=== PATIENT | female | born 1990 | race Caucasian/White ===

== ENCOUNTER 2018-10-12 21:25 | Emergency (ER) | payer BC ==
[~2018-10-12] VITALS: Ht 167.6 cm; Wt 80.8 kg
[~2018-10-12 21:25] MED LIST: PRENAT PO
[2018-10-12 21:35] VITALS: Ht 167.6 cm; Wt 80.8 kg
--- NOTE | 2018-10-12 22:06 | ERD ---
ER Documentation Chief Complaint Chief Complaint exposed to bleach in R eye x30 minutes, can't see out of eye HPI This is a 28-year-old female who presents here in the emergency department with complaints of right eye pain. Stated that his right right eye was exposed to bleach around 1 to 2 hours prior to arrival here in emergency department. LMP: Stated it was 4 days ago. A0. Denies headache, head injury, loss of consciousness, dizziness, neck pain, neck stiffness, throat pain, difficulty swallowing, difficulty breathing lying flat, shoulder pain, chest pain, back pain, abdominal pain, nausea, vomiting, constipation, diarrhea, urinary symptoms, or possibility being pregna nt, loss of bowel and bladder control, trauma, injury, falls, difficulty walking due to pain, numbness or tingling sensation, calf pain, recent travel, recent major surgery in the last 3 weeks, calf pain, recent long travel, recent exposure to any illness, recent antibiotic use in the last 3 months, fever, chills, seizures. Past medical history: Surgical history: Social: Denies smoking, use of alcoholic beverages, use of illegal drugs. ROS All systems reviewed and are negative except as per history of present illness. Medications Home Meds Active Scripts Ibuprofen* (Motrin*) 800 Mg Tab, 800 MG PO Q6H PRN for PAIN AND OR ELEVATED TEMP, #30 TAB Prov:CHAD DAVIS 10/12/18 Polymyxin B Sulfate-TMP* (Polymyxin B-TMP Eye Drops*) 10 Ml Drops, 1 DROP BOTH EYES QID for 7 Days, EA Prov:CHAD DAVIS 10/12/18 Reported Medications Multivit/Min/Fol Ac/Iron/Pren* ( S*) 1 Tab Tab, 1 TAB PO DAILY, TAB 05/16/16 Allergies Allergies: Coded Allergies: No Known Drug Allergy (Verified Allergy, Unknown, 02/08/16) PMhx/Soc History of Surgery: Yes (cholecystectomy, appendectomy) Anesthesia Reaction: No Hx Neurological Disorder: No Hx Respiratory Disorders: No Hx Cardiac Disorders: No Hx Psychiatric Problems: No Hx Miscellaneous Medical Probl: No Hx Alcohol Use: No Hx Substance Use: No Hx Tobacco Use: No Smoking Status: Never smoker Physical Exam Vitals Physical Exam Const: No acute distress Head: Atraumatic Eyes: Right eye: Conjunctival injection. Good eye movement. No total visual field loss. Left eye: Unremarkable. ENT: Normal External Ears, Nose and Mouth. Neck: Full range of motion. No meningismus. Resp: Clear to auscultation bilaterally Cardio: Regular rate and rhythm, no murmurs Abd: Soft, non tender, non distended. Normal bowel sounds Skin: No petechiae or rashes Back: No midline or flank tenderness Ext: No cyanosis, or edema Neur: Awake and alert. No neurological deficits. Psych: Normal Mood and Affect Results 24 hrs Laboratory Tests Test 10/13/18 01:03 10/13/18 01:05 Urine Color YELLOW Urine Clarity SLIGHTLY CLOUDY Urine pH 5.0 Urine Specific [place] 1.027 Urine Ketones NEGATIVE mg/dL Urine Nitrite NEGATIVE mg/dL Urine Bilirubin NEGATIVE mg/dL Urine Urobilinogen NEGATIVE mg/dL Urine Leukocyte Esterase TRACE Jasbir/ul Urine Microscopic RBC 2 /HPF Urine Microscopic WBC 1 /HPF Urine Squamous Epithelial Cells FEW /HPF Urine Bacteria FEW /HPF Urine Mucus MANY /HPF Urine Hemoglobin NEGATIVE mg/dL Urine Glucose NEGATIVE mg/dL Urine Total Protein NEGATIVE mg/dl Urine Opiates Screen Positive Urine Barbiturates Negative Urine Amphetamines Screen Negative Urine Benzodiazepines Screen Negative Urine Cocaine Screen Positive Urine Cannabinoids Positive POC Beta HCG, Qualitative NEGATIVE Current Medications Medications Dose Sig/Sada Start Time Status Last (Trade) Ordered Route PRN Stop Time Admin Dose Reason Admin Sodium 1,000 ml NOW IRR 10/12/18 DC 10/12/18 Chloride 22:30 23:03 (NS (Irrig)) 10/15/18 11:31 Tetracaine 1 drop ONCE ONCE 10/12/18 DC HCl RIGHT EYE 22:30 (Tetracaine 10/12/18 22:31 0.5% Steri-Unit Li) Fluorescein 1 strip ONCE ONCE 10/12/18 DC Sodium RIGHT EYE 22:30 ([id number] 10/12/18 22:31 p) Morphine 4 mg ONCE STAT 10/12/18 DC 10/12/18 Sulfate IM 23:01 23:17 (morphine) 10/12/18 23:02 Diphtheria/ 0.5 ml ONCE ONCE 10/12/18 DC 10/12/18 Tetanus/Acell IM* 23:30 23:18 Pertussis 10/12/18 23:31 (Adacel) Ondansetron 4 mg ONCE STAT 10/12/18 DC 10/12/18 HCl (Zofran ODT 23:47 23:55 Odt) 10/12/18 23:48 Famotidine 40 mg ONCE ONCE 10/13/18 DC 10/13/18 (Pepcid) PO 00:00 00:11 10/13/18 00:01 40 ml ONCE ONCE 10/13/18 DC 10/13/18 Miscellaneous PO 01:30 01:17 Medication 10/13/18 01:31 (Gi Cocktail (2)) Procedures/MDM This case was discussed with my supervising physician, Dr. Dominguez Diagnostic tests: Eye exam under Malloy lamp No corneal abrasion. pH test 7.0. Treatment: Eye irrigation using Roberto lens. Pepcid. Zofran. GI cocktail. Patient strongly refused for me to do another pH test for her right eye. Patient complains of epigastric pain that decreased to left lower chest. Pain is reproducing. Denies family history of heart attack before the age of 50. Not a smoker. Denies drug use. EKG: Normal sinus rhythm with a ventricular rate of 72 bpm. No STEMI. Read by supervising physician. POC urine : Negative. Urinalysis: Reviewed. Urine drug screen: Positive for opiates, cocaine, cannabinoids. Patient refused blood works and chest x-ray. Re-evaluation: Denies chest pain, headache. Stated that she feels much better this time. No visual field loss. No neurological deficits. Differential diagnosis I have low suspicion for punctured globe, ruptured globe, retained foreign body, blindness, acute closure angle glaucoma, herpes zoster ophthalmicus. Final diagnosis: Chemical exposure to right eye. Prescription: Polytrim. Motrin. Follow-up with PCP in the next 24-48 hours. Follow-up with wrong address clerk in the next 24 to 48 hours. Come back here in the emergency department for any new symptoms or any worsening symptoms. All questions and concerns were answered. Patient and family members verbalized understanding and agreed with plan of care. Hemodynamically stable on discharge. Departure Diagnosis: Primary Impression: Chemical exposure of eye Condition: Stable Additional Instructions: Follow-up with PCP in the next 24-48 hours. Follow-up with wrong address clerk in the next 24 to 48 hours. Come back here in the emergency department for any new symptoms or any worsening symptoms. CHAD DAVIS October 12, 2018 22:06
[2018-10-12] MEDS ORDERED: TETRACAINE 0.5% 4 ML OPH RIGHT EYE ONE (22:30)
[2018-10-12] MEDS ORDERED: FLUORESCEIN STRIP RIGHT EYE ONE (22:30)
[2018-10-12] MEDS ORDERED: SODIUM CHLORIDE 0.9% 1L IRRIG IRR SCH (22:30)
[2018-10-12] MEDS ORDERED: morphine 4 MG/ML VIAL IM STA (23:01)
[2018-10-12] MEDS ORDERED: DIPHTH/TET/ACEL PERTUSS (ADULT) 0.5 ML VIAL IM* ONE (23:30)
[2018-10-12] MEDS ORDERED: ONDANSETRON (ODT) 4 MG TAB ODT STA (23:47)
[2018-10-12] MEDS ORDERED: IBUP800T48 PO (23:54)
[2018-10-12] MEDS ORDERED: POLY10DR19 BOTH EYES (23:54)
[2018-10-13] MEDS ORDERED: FAMOTIDINE 20 MG TAB PO ONE
[2018-10-13] MEDS ORDERED: LIDOCAINE/MYLANTA 40 ML BTL PO ONE (01:30)
[2018-10-13 02:35] VITALS: BP 108/80; PULSE 78; RESP 18
== END 2018-10-13 02:43 | disposition home or self-care (01) ==
LOC: FTE 21:25
DX: T54.91XA Toxic effect of unspecified corrosive substance, accidental (unintentional), initial encounter (principal); R10.13 Epigastric pain; Z23 Encounter for immunization
CPT/HCPCS: 80307; 81001; 81025; 90715; A4217; J2270; Z7610; 90471; 96372